=== PATIENT | female | born 1975 | race Caucasian/White ===

== ENCOUNTER → 2016-03-15 | Outpatient (CLI) | payer BC ==
[~2016-03-15] MED LIST: ATEN-171 PO; IBUP-1050 PO; OXYC1TAB3 PO; PRD/1 PO; PSEU60TA80 PO
== END | disposition home or self-care (01) ==
LOC: C.LABSPEC 12:05
PROVIDERS: ATTEND Obstetrics & Gynecology
DX: N76.2 Acute vulvitis (principal)

== ENCOUNTER → 2016-03-30 | Outpatient (CLI) | payer BC | END | disposition home or self-care (01) | LOC: C.LABSPEC 14:27 | PROVIDERS: ATTEND Obstetrics & Gynecology | DX: N76.0 Acute vaginitis (principal) ==

== ENCOUNTER → 2016-09-21 | Outpatient (CLI) | payer BC ==
[~2016-09-21] MED LIST changes: -OXYC1TAB3 PO
== END | disposition home or self-care (01) ==
LOC: C.PAPS 17:11
PROVIDERS: ATTEND Obstetrics & Gynecology
DX: Z01.419 Encounter for gynecological examination (general) (routine) without abnormal findings (principal)

== ENCOUNTER → 2017-01-22 | Outpatient (CLI) | payer BC ==
[2017-01-27 02:21] LABS: ACETYLCHOLINE RECEP MODULATING 28; ACETYLCHOLINE RECEPT BLOCKING <15 % inhibit (<15); RECEPTOR BINDING AB <0.30 nmol/L (<=0.30)
== END | disposition home or self-care (01) ==
LOC: C.LAB1850 16:30
PROVIDERS: ATTEND Ophthalmology
DX: H50.05 Alternating esotropia (principal)

== ENCOUNTER → 2017-01-25 | Outpatient (CLI) | payer BC ==
[~2017-01-25] MED LIST changes: +GADAVIST IV PRN
--- NOTE | 2017-01-25 07:28 | DIAGNOSTIC IMAGING REPORT ---
BRAIN COMBO CLINICAL HISTORY: 41 years-old Female presenting with ALTERNATING ESOTROPIA,DYPLOPIA. TECHNIQUE: Multisequence, multiplanar MR imaging of the brain was performed before and after the administration of intravenous contrast. IV contrast: 7.5 mL of Gadavist. COMPARISON: CT from 05/11/2014. FINDINGS: Ventricles and sulci normal in size. Brain parenchyma normal in appearance with preserved zapata-white differentiation. No mass effect or midline shift. No restricted diffusion to suggest acute ischemia. No hemorrhage. No extra-axial fluid collection. T2 skull base flow voids preserved. No abnormal parenchymal enhancement. Bone marrow signal intensity within the calvarium within normal limits. IMPRESSION: 1. No acute intracranial pathology. No abnormal enhancement. Electronically signed by: Primitivo Rayo M.D. 01/25/2017 7:26 AM Dictated Date/Time: 01/25/2017 7:22 AM
== END | disposition home or self-care (01) ==
LOC: C.MRI 06:09
PROVIDERS: ATTEND Ophthalmology
DX: H50.05 Alternating esotropia (principal); H53.2 Diplopia

== ENCOUNTER → 2017-02-04 | Outpatient (CLI) | payer BC ==
--- NOTE | 2017-02-04 09:06 | DIAGNOSTIC IMAGING REPORT ---
ORBIT COMBO CLINICAL HISTORY: 41 years-old Female presenting with DIPLOPIA. TECHNIQUE: Multisequence, multiplanar MR imaging of the orbits was performed before and after the administration of intravenous contrast. IV contrast: 7.5 mL of Gadavist. COMPARISON: Brain MR from 01/25/2017. FINDINGS: The bilateral orbits are normal appearing with normal appearing globes. No convexity of the retinal insertion of the optic nerve. The optic nerve sheaths containing trace fluid, which is physiologic. The optic nerves are normal in thickness and signal intensity. No infiltration of intraorbital fat. The optic chiasm is normal in appearance and nondisplaced. No abnormal enhancement on postcontrast imaging. Ocular motor nerves normal in appearance. T2 skull base flow voids preserved. Limited evaluation of the visualized brain parenchyma is normal. IMPRESSION: 1. Normal orbits. No MR evidence of optic neuritis. No abnormal enhancement. Electronically signed by: Primitivo Rayo M.D. 02/04/2017 9:05 AM Dictated Date/Time: 02/04/2017 8:59 AM
== END | disposition home or self-care (01) ==
LOC: C.MRI 07:33
PROVIDERS: ATTEND Ophthalmology
DX: H50.05 Alternating esotropia (principal); H53.2 Diplopia

== ENCOUNTER → 2017-04-09 | Outpatient (CLI) | payer OTHER ==
[~2017-04-09] MED LIST changes: -GADAVIST IV PRN
[2017-04-09 17:12] LABS: BASO % 0.4 %; BASO ABS # 0.03 K/uL (0-0.2); EOS % 1.6 %; EOS ABS # 0.12 K/uL (0-0.5); HEMATOCRIT 42.6 % (37-47); HEMOGLOBIN 14.8 g/dL (12.0-16.0); IG# 0.01 K/uL (0.00-0.02); LYMPH ABS # 2.69 K/uL (1.2-3.4); MEAN CELL VOLUME 88.6 fL (80-100); MEAN CORPUSCULAR HEMOGLOBIN 30.8 pg (25-34); MEAN CORPUSCULAR HGB CONC 34.7 g/dl (32-36); MEAN PLATELET VOLUME 12.1 fL (7.4-10.4); NEUT % 53.9 %; NEUT ABS # 4.03 K/uL (1.4-6.5); PLATELET COUNT 318 K/uL (130-400); RED CELL DISTRIBUTION WIDTH CV 14.9 % (11.5-14.5); RED CELL DISTRIBUTION WIDTH SD 48.3 fL (36.4-46.3); WHITE BLOOD COUNT 7.48 K/uL (4.8-10.8)
== END | disposition home or self-care (01) ==
LOC: C.LABBC 15:05
PROVIDERS: ATTEND Ophthalmology
DX: D69.3 Immune thrombocytopenic purpura (principal)